=== PATIENT | male | born 1985 | race Two or more races ===

== ENCOUNTER 2017-01-18 21:50 | Emergency (ER) | payer MEDICAID ==
[~2017-01-18] VITALS: Ht 167.6 cm; Wt 113.4 kg
[2017-01-18 22:55] VITALS: BP 124/91
== END 2017-01-18 22:56 | disposition home or self-care (01) ==
LOC: ER 21:58
DX: L05.01 Pilonidal cyst with abscess (principal)
CPT/HCPCS: 10080; 99284; A4606; A6402; A6407; Z7610

== ENCOUNTER 2017-01-20 17:40 | Emergency (ER) | payer MEDICAID ==
[~2017-01-20] VITALS: Ht 167.6 cm; Wt 113.4 kg
[2017-01-20 17:45] VITALS: BP 108/69
== END 2017-01-20 18:33 | disposition home or self-care (01) ==
LOC: ER 17:44
DX: L02.31 Cutaneous abscess of buttock (principal)
CPT/HCPCS: 99281; A4606; Z7610; Z7502